=== PATIENT | female | born 1985 | race Caucasian/White ===

== ENCOUNTER 2016-11-03 11:00 | Emergency (ER) | payer OTHER ==
[~2016-11-03 11:00] MED LIST: CLIN1CAP5 PO; LORT5TAB PO; SULF1TAB47 PO; Z.0.NO CURRENT MEDS
--- NOTE | 2016-11-03 11:49 | PD ---
HPI Chief Complaint Back pain, lower abdominal pain , decreased movement Date Seen: Nov 03, 2016 Time Seen: 11:30 Travel History International Travel<30 Days: No Contact w/Intl Traveler<30Days: No Known Affected Area: No History of Present Illness HPI 31-year-old 0-1 at 36 weeks and 4 days of gestation, EDC 11/27/16, patient presented to labor and delivery with complaints of decreased movement, back pain and lower abdominal pain. Patient has a history of previous section 1. She denies contractions, leakage of fluids, vaginal bleeding. care is with [facility] [employer] [employer] in [place], care is significant for morbid obesity, history of previous section 1, history of preeclampsia in previous , and gestational diabetes. Para: 1 : 4 Miscarriage: 2 : 0 History Past Medical History Narrative Medical Significant for: History of preeclampsia at this , gestational diabetes and morbid obesity Obstetric History Obstetric History section 1, spontaneous 2 Past Surgical History Narrative Surgical delivery 1 in 2012 Family History Narrative Family History Significant for diabetes and hypertension Social History Alcohol Use: No Tobacco Use: Yes (ex-smoker) Substance Abuse: No Allergies-Medications (Allergen,Severity, Reaction): Coded Allergies: Adhesives (Verified Allergy, Mild, Rash, 07/30/15) Home Meds Active Scripts Hydrocodone-Acetaminophen (Lortab 5/500)5 Mg/500 Mg Tab1 Tab PO Q6HPRN #10 Prov:Cruzito De Oliveira MD 04/18/13 Clindamycin Hcl 150 Mg Cap2 Tab PO Q6H #80 Prov:Cruzito De Oliveira MD 04/18/13 Trimethoprim/Sulfamethoxazole (Bactrim Ds) Tab1 Tab PO BID #20 Prov:Cruzito De Oliveira MD 04/18/13 Reported Medications Miscellaneous (No Current Meds) Misc 07/22/11 Review of Systems Except as stated in HPI: all other systems reviewed are Neg Gastrointestinal: Other (lower abdominal pain) Genitourinary: Pelvic Pain, Other (back pain) Musculoskeletal: Other (back pain) Endocrine: Other (gestational diabetes, morbid obesity) Physical Exam Narrative GENERAL: Well-nourished, well-developed patient. SKIN: Warm and dry. HEAD: Normocephalic and atraumatic. EYES: No scleral icterus. No injection or drainage. ENT: No nasal drainage noted. Mucous membranes pink. Airway patent. NECK: Supple, trachea midline. No JVD. CARDIOVASCULAR: Regular rate and rhythm without murmurs, gallops, or rubs. RESPIRATORY: Breath sounds equal bilaterally. No accessory muscle use. BREASTS: Bilateral exam showed no masses , no retractions, no nipple discharge. ABDOMEN/GI: Abdomen soft, gravid, non-tender, bowel sounds present, no rebound, no guarding Gravid to 37 weeks size Fundal Height: 37 cm GENITOURINARY: External Genitalia: intact and normal in appearance BUS glands: Normal Cervix: Closed, long, posterior Dilatation: Closed Effacement: 50% Station: -3 Presentation: Cephalic Membranes: intact Uterine Contractions: None FHT's: Category: one Baseline: 140s Reactive: Yes Variability: Moderate Decels: None EXTREMITIES: No cyanosis or edema. BACK: Nontender without obvious deformity. No CVA tenderness. NEUROLOGICAL: Awake and alert. Motor and sensory grossly within normal limits. Five out of 5 muscle strength in all muscle groups. Normal speech. Data Data Vital Signs Reviewed: Yes Orders Vital Signs (Adult) .ON ADMISSION (11/03/16 11:27) ^ Labor Status (11/03/16 11:27) Urinalysis - C+S If Indicated (11/03/16 11:27) ^ Non Stress Test (11/03/16 11:27) ^ Hydration (11/03/16 11:27) Ob Bpp Wo Nst (11/03/16 11:27) [facility] Medical Record Reviewed: Yes Diagnosis Diagnosis: Primary Impression: 36 weeks gestation of Additional Impressions: Decreased movement affecting management of in third trimester Gestational diabetes mellitus (GDM) Qualified Code: O24.410 - Diet controlled gestational diabetes mellitus (GDM) in third trimester Disposition: DISCHARGE HOME Condition: Stable Patient Instructions: Abdominal Pain in (ED), Early Labor Signs (ED) , Movement (ED), General Instructions, Gestational Diabetes Diet (GEN) Additional Instructions: Patient underwent a BPP and NST, BPP is 8 out of 8, amniotic fluid index 14.2, NST is reassuring and reactive. Patient is now feeling the baby move. Will discharge patient to home. Patient instructed to return to labor and delivery if increase symptoms, cramping, contractions, leakage of fluids, vaginal bleeding and decreased movement. Drink plenty of fluids. Monitor kick counts. Keep office appointment as scheduled. Continue with already scheduled testing once weekly. Continue with fingersticks blood glucose. Departure Forms: Tests/Procedures Yovani Otoole MD Nov 03, 2016 11:49
[2016-11-03 11:57] LABS: BACTERIA, URINE RARE /hpf; BLOOD, URINE TRACE (NEG); GLUCOSE,URINE 150 mg/dL (NEG); KETONE, URINE NEG (NEG); MUCUS URINE FEW /lpf (OCC); NITRITE,URINE NEG (NEG); PH, URINE 6.5 (5.0-8.5); SQUAMOUS EPITHELIAL CELL URINE 1 /hpf (0-5); URINE COLOR YELLOW (YELLW/STRAW)
[2016-11-03 11:58] LABS: COMMENT (UR) CULTURE INDICATED; CULTURE IF INDICATED CULTURE INDICATED
[2016-11-04] MEDS ORDERED: DOCO200C (14:15)
[2016-11-04] MEDS ORDERED: ASPI81TA81 (14:15)
== END 2016-11-03 12:39 | disposition home or self-care (01) ==
LOC: HOBED 11:00
DX: O36.8130 Decreased fetal movements, third trimester, not applicable or unspecified (principal); O24.410 Gestational diabetes mellitus in pregnancy, diet controlled; O26.893 Other specified pregnancy related conditions, third trimester; R10.2 Pelvic and perineal pain; M54.9 Dorsalgia, unspecified; O99.213 Obesity complicating pregnancy, third trimester; E66.01 Morbid (severe) obesity due to excess calories; O34.219 Maternal care for unspecified type scar from previous cesarean delivery; Z87.891 Personal history of nicotine dependence; Z3A.36 36 weeks gestation of pregnancy
CPT/HCPCS: 59025; 76819; 81001; 82570; 84156; 87086

== ENCOUNTER 2016-11-10 11:05 | Emergency (ER) | payer OTHER ==
[~2016-11-10 11:05] MED LIST changes: +ASPI81TA81; -CLIN1CAP5 PO; +DOCO200C; -LORT5TAB PO; -SULF1TAB47 PO; -Z.0.NO CURRENT MEDS
[2016-11-10] MEDS ORDERED: LACTATED RINGER'S 1000 ML INJ 1,000 ML IV ONE (11:45)
[2016-11-10] MEDS ORDERED: ONDANSETRON HCL 4 MG/2 ML VIAL IV PUSH ONE (11:45)
--- NOTE | 2016-11-10 11:46 | PD ---
HPI Chief Complaint nausea, vomiting, diarrhea Date Seen: Nov 10, 2016 Time Seen: 11:35 (Yeyo Canada MD R2) Travel History International Travel<30 Days: No Contact w/Intl Traveler<30Days: No Known Affected Area: No (Yeyo Canada MD R2) History of Present Illness HPI 31 year old at 37/4 weeks gestation presents with nausea, vomiting, and diarrhea for 24 hours. She's had 5 episodes of vomiting and 8 episodes of non- bloody diarrhea. She has lower abdominal cramping but no contractions. She feels her heart racing and has lightheadedness when standing. Her mouth feels dry. She has a mild headache. No blurry vision, chest pain, shortness of breath , or calf tenderness. She has a history of diet controlled diabetes. (Yeyo Canada MD R2) History Past Medical History Narrative Medical Diabetes type II (Yeyo Canada MD R2) Obstetric History Obstetric History at 3/4 1.) delivered at 36 weeks via for failure to progress, had preeclampsia 2.) current , diet controlled diabetes, no other complications (Yeyo Canada MD R2) Past Surgical History Narrative Surgical (Yeyo Canada MD R2) Family History Narrative Family History None significant (Yeyo Canada MD) Social History Alcohol Use: No Tobacco Use: No Substance Abuse: No (Yeyo Canada MD R2) Allergies-Medications (Allergen,Severity, Reaction): Coded Allergies: Adhesives (Verified Allergy, Mild, Rash, 11/04/16) Home Meds Active Scripts Nitrofurantoin Monohydrate Macrocrystals (Macrobid)100 Mg [id number] Mg PO BID #10 CAP Ref 0 Prov:Yeyo Canada MD R2 11/10/[address] (Aspir-81)81 Mg Tabdr 11/04/16 Docosahexaenoic Acid ( Dha)Unknown Strength CapUnknown Dose 11/04/16 Discontinued Reported Medications Miscellaneous (No Current Meds) Misc 07/22/11 Discontinued Scripts Hydrocodone-Acetaminophen (Lortab 5/500)5 Mg/500 Mg Tab1 Tab PO Q6HPRN #10 Prov:Cruzito De Oliveira MD 04/18/13 Clindamycin Hcl 150 Mg Cap2 Tab PO Q6H #80 Prov:Cruzito De Oliveira MD 04/18/13 Trimethoprim/Sulfamethoxazole (Bactrim Ds) Tab1 Tab PO BID #20 Prov:Cruzito De Oliveira MD 04/18/13 Review of Systems General / Constitutional: Weight Gain, No: Fever, Weight Loss, Chills Eyes: No: Diploplia, Blurred Vision, Visual changes, Pain HENT: Headaches, Lightheadedness, No: Vertigo Cardiovascular: Tachycardia, No: Irregular Rhythm, Chest Pain or Discomfort, Palpitations, Syncope, Varicosities, Edema, Cyanosis Respiratory: No: Cough, Short of Breath, Wheezing Gastrointestinal: Nausea, Vomiting, Diarrhea, Loss of Appetite, No: Abdominal Pain Genitourinary: No: Urgency, Frequency, Dysuria Musculoskeletal: Cramping, No: Weakness, Edema Skin: No Rash Neurologic: Headache, No: Weakness, Dizziness, Syncope, Focal Abnormalities, Coordination Problem, Slurred Speech, Seizures Psychiatric: No: Anxiety, Depression Endocrine: No: Heat Intolerance, Cold Intolerance (Yeyo Canada MD R2) Gastrointestinal: No: Nausea (resolved), Vomiting (resolved), Diarrhea (stable) , Abdominal Pain Genitourinary: No: Urgency, Frequency, Discharge, Vaginal Bleeding (Madisyn Fernandes MD) Physical Exam Narrative GENERAL: Well-nourished, well-developed patient. SKIN: Good skin turgor HEAD: Normocephalic and atraumatic. EYES: No scleral icterus. No injection or drainage. ENT: Dry lips and oral mucosa NECK: Supple, trachea midline. No JVD. CARDIOVASCULAR: Regular rate and rhythm without murmurs, gallops, or rubs. Normal capillary refill. RESPIRATORY: Breath sounds equal bilaterally. No accessory muscle use. ABDOMEN/GI: Abdomen soft, non-tender, bowel sounds present, no rebound, no guarding Gravid to 37 weeks size GENITOURINARY: External Genitalia: intact and normal in appearance Dilatation: [-] Effacement: [-] Station: [-] Presentation: [-] Membranes: [intact or ruptured] Uterine Contractions: 0 FHT's: Category: 1 Baseline: 160's Reactive: yes Variability: moderate Decels: none EXTREMITIES: No cyanosis or edema. BACK: Nontender without obvious deformity. No CVA tenderness. NEUROLOGICAL: Awake and alert. Motor and sensory grossly within normal limits. Five out of 5 muscle strength in all muscle groups. Normal speech. (Yeyo Canada MD R2) Narrative Initially mild tachycardia 165-170, moderate variability, no decelerations After IV hydration FHR baseline 155, moderate variability, +accelerations to 170s TOCO: No uc (Madisyn Fernandes MD) Data Data Vital Signs Reviewed: Yes Orders Vital Signs (Adult) .ON ADMISSION (11/10/16 11:30) ^ Labor Status (11/10/16 11:30) ^ Non Stress Test (11/10/16 11:30) Vital Signs (Adult) .ON ADMISSION (11/10/16 11:37) ^ Labor Status (11/10/16 11:37) Urinalysis - C+S If Indicated (11/10/16 11:37) Cbc No Diff, Includes Plts (11/10/16 11:37) Comprehensive Metabolic Panel (11/10/16 11:37) Lipase (11/10/16 11:37) ^ Heart TI.QSHIFT (11/10/16 11:37) (Yeyo Canada MD R2) Vital Signs Reviewed: Yes Labs Laboratory Tests Test 11/10/16 11/10/16 11:10 11:50 Urine Color DARK-YELLOW (YELLW/STRAW) Urine Turbidity HAZY (CLEAR) Urine pH 6.0 (5.0-8.5) Urine Specific [place] 1.034 (1.002-1.035) Urine Protein GREATER THAN 600 mg/dL (NEG-TRACE) Urine Glucose (UA) TRACE mg/dL (NEG) Urine Ketones 150 mg/dL (NEG) Urine Occult Blood TRACE (NEG) Urine Nitrite NEG (NEG) Urine Bilirubin NEG (NEG) Urine Urobilinogen 2.0 MG/DL (LESS THAN 2.0) Urine Leukocyte Esterase TRACE (NEG) Urine RBC 3 /hpf (0-3) Urine WBC 19 /hpf (0-5) Urine Squamous Epithelial 11 /hpf (0-5) Cells Urine Bacteria MOD /hpf (NONE) Urine Hyaline Casts 22 /lpf (RARE) Urine Mucus MANY /lpf (OCC) Microscopic Urinalysis Comment CULTURE INDICATED White Blood Count 9.2 TH/MM3 (4.0-11.0) Red Blood Count 4.88 MIL/MM3 (4.00-5.30) Hemoglobin 14.3 GM/DL (11.6-15.3) Hematocrit 42.3 % (35.0-46.0) Mean Corpuscular Volume 86.6 FL (80.0-100.0) Mean Corpuscular Hemoglobin 29.2 PG (27.0-34.0) Mean Corpuscular Hemoglobin 33.7 % Concent (32.0-36.0) Red Cell Distribution Width 14.9 % (11.6-17.2) Platelet Count 228 TH/MM3 (150-450) Mean Platelet Volume 10.7 FL (7.0-11.0) Sodium Level 134 MEQ/L (136-145) Potassium Level 4.1 MEQ/L (3.5-5.1) Chloride Level 100 MEQ/L (98-107) Carbon Dioxide Level 20.6 MEQ/L (21.0-32.0) Anion Gap 13 MEQ/L (5-15) Blood Urea Nitrogen 10 MG/DL (7-18) Creatinine 0.66 MG/DL (0.50-1.00) Estimat Glomerular Filtration 103 ML/MIN Rate (>89) Random Glucose 153 MG/DL (74-106) Calcium Level 8.6 MG/DL (8.5-10.1) Total Bilirubin 0.4 MG/DL (0.2-1.0) Aspartate Amino Transf 10 U/L (15-37) (AST/SGOT) Alanine Aminotransferase 13 U/L (10-53) (ALT/SGPT) Alkaline Phosphatase 79 U/L (45-117) Total Protein 7.3 GM/DL (6.4-8.2) Albumin 2.2 GM/DL (3.4-5.0) Lipase 70 U/L (73-393) Vital Signs Date Time Temp Pulse Resp B/P Pulse Ox O2 Delivery O2 Flow Rate FiO2 11/10/16 11:50 119 (Madisyn Fernandes MD) [facility] Medical Record Reviewed: Yes Interpretation(s) 31 year old at 37/4 weeks gestation presents with vomiting, diarrhea, dehydration. Mom and baby with mild tachycardia, mom with dry mouth, lightheadedness on standing, mild dehydration. - CBC, CMP, lipase - Urinalysis, check for ketones - monitoring - 1L bolus of LR - Zofran for nausea/vomiting - BPP was already scheduled, will go ahead and get. Narrative Course / MDM 31 year old at 37/4 weeks gestation presents with vomiting, diarrhea, dehydration, likely gastroenteritis. - strip reassuring, tachycardia resolving. - BPP normal. - Urinalysis suggesting bacteriuria, treat empirically with macrobid. - CBC, CMP, lipase reviewed - Encourage good hydration - Close follow up with OB - Schedule for repeat . (Yeyo Canada MD R2) Attending Attestation 37 weeks, care with [facility] 1. Gastroenteritis with 24 hour of N/V/Diarrhea and Dehydration with Large Ketones -symptoms have resolved with IV hydration -tolerated regular (diabetic) lunch -reviewed bland diet for next 24-48 hours -has f/u OB appointment Wed - 48 hours 2. Pregestational DM with Morbid obesity -previously on Metformin -currently no medications, diet controlled -Glucose 154 -has had weekly NSTs, now recommending twice weekly NST with BPP/ASHOK per [facility] -BPP today 05/26 -return to Diagnostics on 3. Polyhydramnios increased on todays ASHOK 28cm -Twice weekly NST/ASHOK, return 4. Prior -Repeat @ 39 weeks unless otherwise indicated per [facility] -Scheduled for Nov 20, 2016 @ 10:[address] Muñoz and Dr. Nayak -Patient understands risk of surgery which include, but not limited to infection , bleeding, need for transfusion, injury to surrounding organs, adhesions/ scarring -counseled 5. Patient desires BTL at time of -She and her partner do not desire future fertility -She states she has signed "tubal papers" awhile ago -discussed salpingectomy for sterilization 6. UA suggestive of UTI -Macrobid RX given -F/u on urine culture at f/u visit (Madisyn Fernandes MD) Diagnosis Diagnosis: Primary Impression: Gastroenteritis Additional Impressions: Urinary tract infection affecting care of mother in third trimester, antepartum Gastrointestinal symptoms during in third trimester, antepartum 37 weeks gestation of Disposition: DISCHARGE HOME Condition: Good Scripts Nitrofurantoin Monohydrate Macrocrystals (Macrobid)100 Mg [id number] Mg PO BID #10 CAP Ref 0 Prov:Yeyo Canada MD R2 11/10/16 Yeyo Canada MD R2 Nov 10, 2016 11:46 Madisyn Fernandes MD Nov 10, 2016 15:41
[2016-11-10 11:50] VITALS: PULSE 119
[2016-11-10 12:13] LABS: HEMATOCRIT 42.3 % (35.0-46.0); MEAN CELL VOLUME 86.6 FL (80.0-100.0); MEAN CORPUSCULAR HEMOGLOBIN 29.2 PG (27.0-34.0); MEAN CORPUSCULAR HGB CONC 33.7 % (32.0-36.0); PLATELET COUNT 228 TH/MM3 (150-450); RED BLOOD COUNT 4.88 MIL/MM3 (4.00-5.30); RED CELL DISTRIBUTION WIDTH 14.9 % (11.6-17.2); REVIEW FLAG FINAL; WHITE BLOOD COUNT 9.2 TH/MM3 (4.0-11.0)
[2016-11-10 12:26] LABS: BACTERIA, URINE MOD /hpf; BLOOD, URINE TRACE (NEG); GLUCOSE,URINE TRACE mg/dL (NEG); HYALINE CAST, URINE 22 /lpf (RARE); KETONE, URINE 150 mg/dL (NEG); MUCUS URINE MANY /lpf (OCC); NITRITE,URINE NEG (NEG); SQUAMOUS EPITHELIAL CELL URINE 11 /hpf (0-5); URINE COLOR DARK-YELLOW (YELLW/STRAW)
[2016-11-10 12:29] LABS: ALT (GPT) 13 U/L (10-53); ANION GAP 13 MEQ/L (5-15); AST (GOT) 10 U/L (15-37); BICARBONATE 20.6 MEQ/L (21.0-32.0); BLOOD UREA NITROGEN 10 MG/DL (7-18); CHLORIDE 100 MEQ/L (98-107); GLOMERULAR FILTRATION RATE 103 ML/MIN (>89); POTASSIUM 4.1 MEQ/L (3.5-5.1); SODIUM (NA) 134 MEQ/L (136-145)
[2016-11-10 12:31] LABS: COMMENT (UR) CULTURE INDICATED; CULTURE IF INDICATED CULTURE INDICATED
[2016-11-10 12:32] LABS: ALKALINE PHOSPHATASE 79 U/L (45-117); TOTAL BILIRUBIN ADULT 0.4 MG/DL (0.2-1.0)
[2016-11-10] MEDS ORDERED: LACTATED RINGER'S 1000 ML INJ 1,000 ML IV SCH (14:00)
[2016-11-10] MEDS ORDERED: MACR100C2 PO (15:27)
== END 2016-11-10 15:37 | disposition home or self-care (01) ==
LOC: HOBED 11:05
DX: O99.613 Diseases of the digestive system complicating pregnancy, third trimester (principal); O24.113 Pre-existing type 2 diabetes mellitus, in pregnancy, third trimester; O99.283 Endocrine, nutritional and metabolic diseases complicating pregnancy, third trimester; O99.213 Obesity complicating pregnancy, third trimester; E11.9 Type 2 diabetes mellitus without complications; Z3A.37 37 weeks gestation of pregnancy
CPT/HCPCS: 76819; 80053; 81001; 83690; 85027; 87086; 96361; 96374; 99284; J2405; J7120

== ENCOUNTER 2016-11-13 13:42 | Inpatient (IN) | payer OTHER ==
[~2016-11-13 13:42] MED LIST changes: +MACR100C2 PO
[2016-11-13 14:31] VITALS: BP 155/101; PULSE 97
[2016-11-13] MEDS ORDERED: LACTATED RINGER'S 1000 ML INJ 1,000 ML IV ONE ×2 (14:39→21:00)
--- NOTE | 2016-11-13 14:39 | HHI.HP ---
HPI Chief Complaint This patient was presenting for OB consultation for a cc repeat and was then OB diagnostics no definite hypertension there and some tachycardia and brought over to OB ED Date Seen: Nov 13, 2016 Travel History International Travel<30 Days: No Contact w/Intl Traveler<30Days: No Known Affected Area: No History of Present Illness HPI The patient is a 31-year-old white female previous 1 now 38 weeks gestation who [facility], she was presenting today for OB diagnostics biophysical and when seen there blood pressures were elevated the baby was somewhat tachycardic and they feel she needed to be seen in the OB ED which they brought her over here, she was also supposed of OB consultation for repeat today as well. The patient states baby is moving her heart rate tracing is reactive and the heart rate is within normal limits on its rate, she has no contractions and her membranes are intact. Blood pressures here 146/97 150/85 and 148/92 those to lasting pressures her back in OB diagnostics. Para: 1 : 4 : 2 History Past Medical History Narrative Medical Patient has gestational diabetes diet controlled her blood sugars within normal limits at home fingersticks. The patient also has history of hypertension in previous Obstetric History Obstetric History Previous Family History Family History: Negative Social History Alcohol Use: No Tobacco Use: No Substance Abuse: No Allergies-Medications (Allergen,Severity, Reaction): Coded Allergies: Adhesives (Verified Allergy, Mild, Rash, 11/12/16) Home Meds Active Scripts Nitrofurantoin Monohydrate Macrocrystals (Macrobid)100 Mg [id number] Mg PO BID #10 CAP Ref 0 Prov:Yeyo Canada MD R2 11/10/16 Reported Medications Aspirin (Aspir-81)81 Mg Tabdr 11/04/16 Docosahexaenoic Acid ( Dha)Unknown Strength CapUnknown Dose 11/04/16 Review of Systems General / Constitutional: No: Fever, Weight Gain, Chills, Other Eyes: No: Diploplia, Blurred Vision, Visual changes, Pain, Photophobia HENT: No: Headaches, Vertigo, Lightheadedness Cardiovascular: No: Irregular Rhythm, Chest Pain or Discomfort, Palpitations, Tachycardia, Syncope, Varicosities, Edema, Cyanosis Respiratory: No: Cough, Short of Breath, Other Gastrointestinal: No: Nausea, Vomiting, Diarrhea Genitourinary: No: Decreased Urinary Output, Oliguria Musculoskeletal: No: Limited ROM, Weakness, Cramping, Edema, Pain Skin: No Rash, No Itching, No Dryness, No Lumps, No Change in Pigmentation, No Change in Nails, No Alopecia, No Lesions Neurologic: No: Weakness, Dizziness, Syncope, Focal Abnormalities, Coordination Problem, Headache, Slurred Speech, Seizures Psychiatric: No: Depression, Suicidal Ideations, Homicidal Ideation Endocrine: No: Heat Intolerance, Cold Intolerance, Polydipsia, Polyuria, Other Physical Exam Narrative GENERAL: Well-nourished, obese patient. SKIN: Warm and dry. HEAD: Normocephalic and atraumatic. EYES: No scleral icterus. No injection or drainage. ENT: No nasal drainage noted. Mucous membranes pink. Airway patent. NECK: Supple, trachea midline. No JVD. CARDIOVASCULAR: Regular rate and rhythm without murmurs, gallops, or rubs. RESPIRATORY: Breath sounds equal bilaterally. No accessory muscle use. BREASTS: Bilateral exam showed no masses , no retractions, no nipple discharge. ABDOMEN/GI: Abdomen soft, non-tender,obese, bowel sounds present, no rebound, no guarding Gravid to [-40] weeks size Fundal Height: [40-] GENITOURINARY: External Genitalia: intact and normal in appearance BUS glands: [-] Cervix: [Closed-] Dilatation: [0-] Effacement: [0-] Station: [-3] Presentation: [vtx-] Membranes: [intact ] Uterine Contractions: [none-] FHT's: Category: [1-] Baseline: [-144] Reactive: [-yes] Variability: [mod-] Decels: [none-] EXTREMITIES: No cyanosis , 2 + pitting pretibial edema. BACK: Nontender without obvious deformity. No CVA tenderness. NEUROLOGICAL: Awake and alert. Motor and sensory grossly within normal limits. Five out of 5 muscle strength in all muscle groups. Normal speech. Data Data Labs Ultrasound done today shows a biophysical profile 8 of 8 and combine with a reactive NST makes a 10 of 10 biophysical ASHOK as a 23.0 which is down from 28 last week but still positive for polyhydramnios weight is a 9 lbs. 2 oz. on ultrasound was greater than 90th percentile and a macrosomic baby Assessment/Plan Assessment and Plan Patient is a 31-year-old white female previous at 38 weeks' gestation with developing preeclampsia. Pressures are borderline in the 140- 150 over 80 and 90s range, she has a urine protein showing a 24-hour urine spit up spell of 1346 mg in 24 hours, she has developed 2+ pitting edema in her legs and has gained 4 pounds in the last week with the above findings fluid recommend delivery by section at this time. She's had tubal papers signed over a month ago and will find those of the week entire tubes times surgery. The patient ate her last food at about 10 AM today so will wait 6 PM to do her surgery Madan Nayak II, MD Nov 13, 2016 14:38
[2016-11-13 15:10] LABS: BACTERIA, URINE OCC /hpf; BLOOD, URINE NEG (NEG); COMMENT (UR) CULT NOT INDICATED; CULTURE IF INDICATED CULT NOT INDICATED; GLUCOSE,URINE NEG (NEG); KETONE, URINE NEG (NEG); MUCUS URINE FEW /lpf (OCC); NITRITE,URINE NEG (NEG); PH, URINE 6.5 (5.0-8.5); SQUAMOUS EPITHELIAL CELL URINE 6 /hpf (0-5); URINE COLOR YELLOW (YELLW/STRAW)
[2016-11-13] MEDS ORDERED: ceFAZolin 2 GM PREMIX 50 ML IV SCH (15:45)
[2016-11-13] MEDS: LACTATED RINGER'S 1000 ML INJ 1,000 ML IV SCH (16:00)
[2016-11-13] MEDS ORDERED: CITRIC ACID-SODIUM CITRATE LIQ 30 ML UDC PO SCH (16:15)
[2016-11-13 16:31] LABS: AUTOMATED NEUTROPHIL # 7.1 TH/MM3 (1.8-7.7); BASOPHIL % 0.3 % (0.0-2.0); EOSINOPHIL % 0.4 % (0.0-4.0); HEMATOCRIT 39.4 % (35.0-46.0); HEMO FLAGS DIFF FINAL; LYMPH % 16.2 % (9.0-44.0); LYMPHOCYTE # 1.5 TH/MM3 (1.0-4.8); MEAN CELL VOLUME 86.4 FL (80.0-100.0); MEAN CORPUSCULAR HEMOGLOBIN 29.4 PG (27.0-34.0); MEAN CORPUSCULAR HGB CONC 34.1 % (32.0-36.0); MONO % 8.3 % (0.0-8.0); NEUT % 74.8 % (16.0-70.0); PLATELET COUNT 198 TH/MM3 (150-450); RED BLOOD COUNT 4.56 MIL/MM3 (4.00-5.30); RED CELL DISTRIBUTION WIDTH 15.1 % (11.6-17.2); WHITE BLOOD COUNT 9.5 TH/MM3 (4.0-11.0)
[2016-11-13 16:50] LABS: ALKALINE PHOSPHATASE 67 U/L (45-117); ALT (GPT) 11 U/L (10-53); ANION GAP 11 MEQ/L (5-15); AST (GOT) 9 U/L (15-37); BLOOD UREA NITROGEN 14 MG/DL (7-18); CHLORIDE 104 MEQ/L (98-107); GLOMERULAR FILTRATION RATE 165 ML/MIN (>89); POTASSIUM 3.9 MEQ/L (3.5-5.1); SODIUM (NA) 138 MEQ/L (136-145); TOTAL BILIRUBIN ADULT 0.2 MG/DL (0.2-1.0)
[2016-11-13] MEDS ORDERED: MORPHINE SULFATE PF 5 MG/10 ML VIAL ONE (19:12)
[2016-11-13] MEDS ORDERED: ACETAMINOPHEN 1000 MG/100 ML VIAL IV ONE (19:12)
[2016-11-13] MEDS ORDERED: ONDANSETRON HCL 4 MG/2 ML VIAL ONE (19:12)
[2016-11-13] MEDS ORDERED: OXYTOCIN 10 UNIT/ML AMP ONE (19:13)
[2016-11-13] MEDS ORDERED: DEXTROSE (INFANT/PEDS) GEL 2.5 ML/GM (40%) TUBE ONE (20:19)
[2016-11-13] MEDS ORDERED: fentaNYL CITRATE 250 MCG/5 ML AMP ONE (20:57)
[2016-11-13] MEDS ORDERED: ACETAMINOPHEN 325 MG TAB PO PRN (21:00)
[2016-11-13] MEDS ORDERED: ONDANSETRON HCL 4 MG/2 ML VIAL IV PUSH PRN (21:00)
[2016-11-13] MEDS ORDERED: PHENYLEPHRINE HCL 10 MG/ML VIAL IV ONE (21:00)
[2016-11-13] MEDS ORDERED: OXYTOCIN 30 UNITS-500ML PREMIX 500 ML IV ONE (21:00)
[2016-11-13] MEDS ORDERED: ZOLPIDEM TARTRATE 5 MG TAB PO PRN (21:00)
[2016-11-13] MEDS: SODIUM CHLORIDE 0.9% FLUSH 5 ML FLUSH IV SCH (21:00)
[2016-11-13] MEDS ORDERED: SIMETHICONE 80 MG CHEWABLE TAB PO PRN (21:00)
[2016-11-13] MEDS ORDERED: KETOROLAC TROMETHAMINE 60 MG/2 ML (IM) VIAL IM PRN (21:00)
[2016-11-13] MEDS ORDERED: SODIUM CHLORIDE 0.9% FLUSH 5 ML FLUSH IV PRN (21:00)
[2016-11-13] MEDS ORDERED: oxyCODONE/ACETAMINOPHEN 5 MG/325 MG TAB PO PRN (21:00)
[2016-11-13] MEDS ORDERED: OXYTOCIN 30 UNITS-500ML PREMIX 500 ML ONE (22:09)
[2016-11-14 01:31] LABS: AMPHETAMINE, URINE NEG (NEG); BARBITURATES, URINE NEG (NEG); COCAINE, URINE NEG (NEG)
[2016-11-14] MEDS ORDERED: LACTATED RINGER'S 1000 ML INJ 1,000 ML IV SCH (01:55)
[2016-11-14] MEDS: NYSTATIN 100,000 U/GM PWD 15 GM BTL TOPICAL SCH ×2 (05:43→13:46)
[2016-11-14 06:19] LABS: ANION GAP 7 MEQ/L (5-15); AST (GOT) 9 U/L (15-37); BICARBONATE 25.9 MEQ/L (21.0-32.0); BLOOD UREA NITROGEN 14 MG/DL (7-18); CHLORIDE 104 MEQ/L (98-107); GLOMERULAR FILTRATION RATE 89 ML/MIN (>89); SODIUM (NA) 137 MEQ/L (136-145)
[2016-11-14 06:21] LABS: ALKALINE PHOSPHATASE 50 U/L (45-117); ALT (GPT) 9 U/L (10-53); TOTAL BILIRUBIN ADULT 0.1 MG/DL (0.2-1.0)
[2016-11-14] MEDS ORDERED: OXYTOCIN 30 UNITS-500ML PREMIX 500 ML IV PRN (07:00)
--- NOTE | 2016-11-14 08:10 | HHI.OB ---
Subjective Remarks 31 year old post-op day 1 after . She is followed by [facility]. She has a history of pre-eclampsia. Blood pressure this morning is 150/ 90. She had tubal ligation during the procedure. Objective Vitals/I&O Vital Signs Date Time Temp Pulse Resp B/P Pulse Ox O2 Delivery O2 Flow Rate FiO2 11/13/16 14:31 97 155/101 Result Diagram: 11/13/16 1530 11/14/16 0535 Objective Remarks GENERAL: Well-nourished, well-developed patient. CARDIOVASCULAR: Regular rate and rhythm without murmurs, gallops, or rubs. RESPIRATORY: Breath sounds equal bilaterally. No accessory muscle use. ABDOMEN/GI: Abdomen soft, non-tender, bowel sounds present. Incision: Clean, dry and intact. Fundus: Firm, non-tender at umbilicus. GENITOURINARY: Light to moderate bleeding. EXTREMITIES: No cyanosis or edema, non-tender, without signs of DVT. Medications and IVs Current Medications Medications (Trade) Dose Ordered Sig/Allen Route Start Time Stop Time Status Last Admin Lactated Ringer's 1,000 ml @ 150 mls/hr Q6H40M IV 11/13/16 16:00 11/13/16 16:00 (Lr 1000 ml Inj) 1,000 ml @ 100 mls/hr Q10H IV 11/14/16 01:55 11/14/16 21:54 11/14/16 04:00 (NS Flush) 2 ml BID IV 11/13/16 21:00 (NS Flush) 2 ml UNSCH PRN IV 11/13/16 21:00 (Mylicon Chew) 80 mg QID PRN PO 11/13/16 21:00 (Tylenol) 650 mg Q6H PRN PO 11/13/16 21:00 (Motrin) 600 mg Q6H PRN PO 11/13/16 21:00 (Percocet 5-325 Mg) 1 tab Q4H PRN PO 11/13/16 21:00 Oxycodone/ Acetaminophen 2 tab 2 tab Q4H PRN PO 11/13/16 21:00 (Ancef Inj/NS Inj) 100 ml @ 200 mls/hr Q8H IV 11/14/16 02:00 11/14/16 10:29 11/14/16 02:00 (Maureen-Colace) 2 tab Q12H PRN PO 11/13/16 21:00 (Ambien) 5 mg HS PRN PO 11/13/16 21:00 (M-M-R Ii Inj) 0.5 ml ONCE ONCE SQ 11/14/16 16:00 11/14/16 16:01 (Boostrix Inj) 0.5 ml ONCE ONCE IM 11/14/16 16:00 11/14/16 16:01 (Zofran Inj) 4 mg Q6H PRN IV PUSH 11/13/16 21:00 (Mycostatin Powder) 1 applic Q8HR TOPICAL 11/14/16 06:00 11/14/16 05:43 (Flu (Quadrivalent) Vaccine Inj) 0.5 ml ONCE ONCE IM 11/15/16 10:00 11/15/16 10:01 Assessment/Plan Assessment and Plan 31 year old post-op day 1 after , also with pre-eclampsia. - Close monitoring with pre-eclampsia. Will need follow up with OB within 2 to 3 days of leaving the hospital. - Encourage ambulation. - Monitor lochia and incision site. Had vertical incision through abdominal wall and uterus. - History of diabetes. Blood glucose this morning is 136. - Percocet and ibuprofen for pain control. - Positive for THC, risk of neurocognitive dysfunction with if she continues to use. Yeyo Canada MD R2 Nov 14, 2016 08:10
[2016-11-14] MEDS ORDERED: LABETALOL HCL 100 MG TAB PO SCH (09:00)
--- NOTE | 2016-11-14 09:09 | HHI.OB ---
Subjective Post Operative Day: 1 Remarks doing well ambulating , kenroy diet , BP 150/90 bandage dry , seen with [facility] Med resident agree with eval and plan Objective Vitals/I&O Vital Signs Date Time Temp Pulse Resp B/P Pulse Ox O2 Delivery O2 Flow Rate FiO2 11/13/16 14:31 97 155/101 Result Diagram: 11/13/16 1530 11/14/16 0535 Objective Remarks GENERAL: Well-nourished, well-developed patient. CARDIOVASCULAR: Regular rate and rhythm without murmurs, gallops, or rubs. RESPIRATORY: Breath sounds equal bilaterally. No accessory muscle use. ABDOMEN/GI: Abdomen soft, non-tender, bowel sounds present. Incision: Clean, dry and intact. Fundus: Firm, non-tender at umbilicus. GENITOURINARY: Light to moderate bleeding. EXTREMITIES: No cyanosis or edema, non-tender, without signs of DVT. Medications and IVs Current Medications Medications (Trade) Dose Ordered Sig/Allen Route Start Time Stop Time Status Last Admin Lactated Ringer's 1,000 ml @ 150 mls/hr Q6H40M IV 11/13/16 16:00 11/13/16 16:00 (Lr 1000 ml Inj) 1,000 ml @ 100 mls/hr Q10H IV 11/14/16 01:55 11/14/16 21:54 11/14/16 04:00 (NS Flush) 2 ml BID IV 11/13/16 21:00 (NS Flush) 2 ml UNSCH PRN IV 11/13/16 21:00 (Mylicon Chew) 80 mg QID PRN PO 11/13/16 21:00 (Tylenol) 650 mg Q6H PRN PO 11/13/16 21:00 (Motrin) 600 mg Q6H PRN PO 11/13/16 21:00 (Percocet 5-325 Mg) 1 tab Q4H PRN PO 11/13/16 21:00 Oxycodone/ Acetaminophen 2 tab 2 tab Q4H PRN PO 11/13/16 21:00 (Ancef Inj/NS Inj) 100 ml @ 200 mls/hr Q8H IV 11/14/16 02:00 11/14/16 10:29 11/14/16 02:00 (Maureen-Colace) 2 tab Q12H PRN PO 11/13/16 21:00 (Ambien) 5 mg HS PRN PO 11/13/16 21:00 (M-M-R Ii Inj) 0.5 ml ONCE ONCE SQ 11/14/16 16:00 11/14/16 16:01 (Boostrix Inj) 0.5 ml ONCE ONCE IM 11/14/16 16:00 11/14/16 16:01 (Zofran Inj) 4 mg Q6H PRN IV PUSH 11/13/16 21:00 (Mycostatin Powder) 1 applic Q8HR TOPICAL 11/14/16 06:00 11/14/16 05:43 (Flu (Quadrivalent) Vaccine Inj) 0.5 ml ONCE ONCE IM 11/15/16 10:00 11/15/16 10:01 Assessment/Plan Assessment and Plan 31 year old post-op day 1 after , also with pre-eclampsia. - Close monitoring with pre-eclampsia. Will need follow up with OB within 2 to 3 days of leaving the hospital. - Encourage ambulation. - Monitor lochia and incision site. Had vertical incision through abdominal wall and uterus. - History of diabetes. Blood glucose this morning is 136. - Percocet and ibuprofen for pain control. - Positive for THC, risk of neurocognitive dysfunction with if she continues to use. Madan Nayak II, MD Nov 14, 2016 09:09
[2016-11-14 11:59] LABS: HEMATOCRIT 35.6 % (35.0-46.0); MEAN CELL VOLUME 87.7 FL (80.0-100.0); MEAN CORPUSCULAR HGB CONC 33.1 % (32.0-36.0); PLATELET COUNT 173 TH/MM3 (150-450); RED BLOOD COUNT 4.06 MIL/MM3 (4.00-5.30); RED CELL DISTRIBUTION WIDTH 15.2 % (11.6-17.2); REVIEW FLAG FINAL; WHITE BLOOD COUNT 9.1 TH/MM3 (4.0-11.0)
[2016-11-14] MEDS: DOCUSATE SODIUM 50 MG/SENNA 8.6 MG TAB PO PRN (12:35)
[2016-11-14] MEDS: IBUPROFEN 600 MG TAB PO PRN ×2 (12:35→18:42)
[2016-11-14] MEDS: oxyCODONE/ACETAMINOPHEN 5 MG/325 MG TAB PO PRN ×2 (12:36→18:43)
[2016-11-14 13:22] VITALS: BP 151/79; PULSE 98; RESP 18
[2016-11-14 13:23] VITALS: TEMP 98.7; O2SAT 98
[2016-11-14 16:00] VITALS: BP 142/78; PULSE 82; RESP 18
[2016-11-14] MEDS ORDERED: MEASLES, MUMPS, RUBELLA VACCINE 0.5 ML VIAL SQ ONE (16:00)
[2016-11-14] MEDS ORDERED: DIPHTH/TETANUS/ACEL PERTUSSIS (BOOSTER) 0.5 ML VIAL/PFS IM ONE (16:00)
[2016-11-14] MEDS: LACTATED RINGER'S 1000 ML INJ 1,000 ML IV SCH (18:40)
[2016-11-14] MEDS: SODIUM CHLORIDE 0.9% FLUSH 5 ML FLUSH IV SCH (21:00)
[2016-11-15] MEDS: DOCUSATE SODIUM 50 MG/SENNA 8.6 MG TAB PO PRN ×2 (00:18→12:11)
[2016-11-15] MEDS: IBUPROFEN 600 MG TAB PO PRN ×3 (00:18→12:11)
[2016-11-15] MEDS: NYSTATIN 100,000 U/GM PWD 15 GM BTL TOPICAL SCH ×3 (00:18→14:00)
[2016-11-15] MEDS: LACTATED RINGER'S 1000 ML INJ 1,000 ML IV SCH ×2 (00:20→14:40)
[2016-11-15] MEDS: oxyCODONE/ACETAMINOPHEN 5 MG/325 MG TAB PO PRN ×2 (06:02→12:11)
[2016-11-15 07:38] VITALS: PULSE 86; RESP 18; TEMP 98
--- NOTE | 2016-11-15 07:50 | HHI.OB ---
Subjective Remarks 31 year old post-op day 2 after . She is followed by [facility]. She has a history of pre-eclampsia. Blood pressure this morning is 156/ 84. No complaint of headache or blurry vision this morning. No new onset of edema. She plans for tubal ligation with her OB doctor. She is ambulating. Pain is well controlled. No reports of incision site drainage or redness. (Yeyo Canada MD R2) Objective Vitals/I&O Vital Signs Date Time Temp Pulse Resp B/P Pulse Ox O2 Delivery O2 Flow Rate FiO2 11/15/16 07:38 98.0 86 18 11/14/16 16:00 18 11/14/16 16:00 82 142/78 11/14/16 14:16 16 11/14/16 14:15 16 11/14/16 13:23 98.7 98 11/14/16 13:22 98 18 151/79 (Yeyo Canada MD R2) Result Diagram: 11/14/16 1039 11/14/16 0535 Objective Remarks GENERAL: Well-nourished, well-developed patient. CARDIOVASCULAR: Regular rate and rhythm without murmurs, gallops, or rubs. RESPIRATORY: Breath sounds equal bilaterally. No accessory muscle use. ABDOMEN/GI: Abdomen soft, non-tender, bowel sounds present. Incision: Clean, dry and intact. Vertical incision. Fundus: Firm, non-tender at umbilicus. GENITOURINARY: Light to moderate bleeding. EXTREMITIES: No cyanosis or edema, non-tender, without signs of DVT. Medications and IVs Current Medications Medications (Trade) Dose Ordered Sig/Allen Route Start Time Stop Time Status Last Admin (Lr 1000 ml Inj) 1,000 ml @ 150 mls/hr Q6H40M IV 11/13/16 16:00 11/13/16 16:00 (NS Flush) 2 ml BID IV 11/13/16 21:00 (NS Flush) 2 ml UNSCH PRN IV 11/13/16 21:00 (Mylicon Chew) 80 mg QID PRN PO 11/13/16 21:00 (Tylenol) 650 mg Q6H PRN PO 11/13/16 21:00 (Motrin) 600 mg Q6H PRN PO 11/13/16 21:00 11/15/16 06:02 (Percocet 5-325 Mg) 1 tab Q4H PRN PO 11/13/16 21:00 11/15/16 06:02 (Percocet 5-325 Mg) 2 tab Q4H PRN PO 11/13/16 21:00 11/15/16 00:18 (Maureen-Colace) 2 tab Q12H PRN PO 11/13/16 21:00 11/15/16 00:18 (Ambien) 5 mg HS PRN PO 11/13/16 21:00 (Zofran Inj) 4 mg Q6H PRN IV PUSH 11/13/16 21:00 (Mycostatin Powder) 1 applic Q8HR TOPICAL 11/14/16 06:00 11/15/16 06:02 (Flu (Quadrivalent) Vaccine Inj) 0.5 ml ONCE ONCE IM 11/15/16 10:00 11/15/16 10:01 11/14/16 10:13 (Yeyo Canada MD R2) Assessment/Plan Assessment and Plan 31 year old post-op day 2 after , also with pre-eclampsia and gestational diabetes diet controlled. - Close monitoring with pre-eclampsia. Will need follow up with OB within 2 to 3 days of leaving the hospital. - Encourage ambulation. - Monitor lochia and incision site. Had vertical incision through abdominal wall and uterus. - Percocet and ibuprofen for pain control. - Positive for THC, risk of neurocognitive dysfunction with if she continues to use. She reports no use recently and plans to stop. (Yeyo Canada MD R2) Attending Attestation Patient seen and examined with the resident under direct supervision, I agree with the assessment and plan. (Yovani Otoole MD) Yeyo Canada MD R2 Nov 15, 2016 07:50 Yovani Otoole MD Nov 15, 2016 09:51
[2016-11-15] MEDS ORDERED: INFLUENZA VIRUS VACCINE (QUADRIVALENT) 0.5 ML SYR IM ONE (10:00)
[2016-11-15 14:42] VITALS: RESP 18
[2016-11-15] MEDS ORDERED: FERR65TA PO (17:05)
[2016-11-15] MEDS ORDERED: NYST10007 TOPICAL (17:05)
[2016-11-15] MEDS ORDERED: OXYC1TAB63 PO (17:05)
[2016-11-15] MEDS ORDERED: IBUP-232 PO (17:05)
--- NOTE | 2016-11-16 07:47 | HHI.DS ---
Admission Date Nov 13, 2016 at 14:35 Discharge Date: Nov 15, 2016 Admitting Diagnosis preeclampsia Diagnosis: Delivery Date: Nov 13, 2016 : Repeat Infant: Female Brief History The patient is a 31-year-old white female previous 1 now 38 weeks gestation who is [facility], she was presenting today for OB diagnostics biophysical and when seen there blood pressures were elevated the baby was somewhat tachycardic and they feel she needed to be seen in the OB ED which they brought her over here, she was also supposed of OB consultation for repeat today as well. The patient states baby is moving her heart rate tracing is reactive and the heart rate is within normal limits on its rate, she has no contractions and her membranes are intact. Blood pressures here 146/97 150/85 and 148/92 those to lasting pressures her back in OB diagnostics. Pt Condition on Discharge: Good Discharge Disposition: Discharge Home Discharge Instructions Diet Instructions: Diabetic Diet Activities You Can Perform: Regular-No Restrictions, Shower Only-No Bath, Pelvic Rest Activities to Avoid: Strenuous Activity Follow up Referrals: [employer] [employer] - 1 Week New Medications: Ferrous Sulfate (Feosol) 65 Mg Tab 65 MG PO DAILY Nutritional Supplement #30 Ref 0 TAB Ibuprofen (Ibuprofen) 600 Mg Tab 600 MG PO Q6H PRN CRAMPING #30 TAB Nystatin Topical (Nystop Topical) 100,000 Unit/Gm Powd 1 APPLIC TOPICAL Q8HR Rash #15 APPLIC Oxycodone-Acetaminophen (Oxycodone-Acetaminophen) 5-325 mg Tab 1 TAB PO Q4H PRN PAIN SCALE 3 TO 5 #20 TAB Discontinued Medications: Aspirin (Aspir-81) 81 Mg Tabdr Docosahexaenoic Acid ( Dha) Unknown Strength Cap Unknown Dose Nitrofurantoin Monohydrate Macrocrystals (Macrobid) 100 Mg Cap 100 MG PO BID Infection #10 Ref 0 CAP Madan Nayak II, MD Nov 16, 2016 07:47
[2016-11-16] MEDS ORDERED: LABE200T2 PO (09:33)
[2016-11-18 13:30] LABS: OBMETHADONE UR NEG (NEG); PHENCYCLIDINE URINE NEG (NEG)
[2016-11-18 13:31] LABS: BATH SALTS (MDPV) UR NEG (NEG); ECSTASY (MDMA) UR NEG (NEG); HEROIN (6-ACETYLMORPHINE) UR NEG (NEG); K2 SPICE UR NEG (NEG); OXYCODONE (PERCODAN) NEG (NEG)
--- NOTE | 2016-11-19 08:16 | MP ---
cc: YARIEL NAYAK MD DATE OF SURGERY 11/13/2016 PREOPERATIVE DIAGNOSES 1. 38 weeks with preeclampsia. 2. Gestational diabetes. 3. Polyhydramnios. 4. Macrosomic infant. POSTOPERATIVE DIAGNOSES 1. 38 weeks with preeclampsia. 2. Gestational diabetes. 3. Polyhydramnios. 4. Macrosomic infant. PROCEDURE PERFORMED Repeat classical section. SURGEON Yariel Nayak MD ANESTHESIA Spinal. ASSISTANTS Scrub techs. PREOP NOTE The patient is a 31-year-old white female, G2, P1, with section x 1 at 38 weeks gestation who presents to OBD with elevated blood pressures in the 140/90 range. She was spilling 1346 mg of protein in 24 hours and has 2+ pitting edema generally, has gained 4 pounds in the last week. She has documented macrosomic baby, greater than 9 pounds on ultrasound today with polyhydramnios. She has gestational diabetes controlled by diet and her blood sugars have been within normal limits. It was felt that the patient needed delivery today due to her developing preeclampsia and is for repeat section. PROCEDURE The patient was taken to the operating room and placed in the supine position on the operating room table. Adequate spinal anesthesia was administered. She was prepped and draped for abdominal surgery. Because the patient had a significant yeast infection in both groins and in the suprapubic region, it was felt we should not repeat her section through an infected field, so we performed a vertical skin incision 6 cm below and 6 cm above the umbilicus paramedian to the right vertical incision, carried through the fascia sharply, the fascia incised superiorly and inferiorly and the peritoneal cavity entered without difficulty. The uterus are palpated, noted to be rotated to the left and it was manipulated back to the midline and the midline was identified and a classical incision was made in the fundus of the uterus. The placenta was entered at that time first and I reached through the placenta, grabbed the baby's leg and pulled it up through the incision, reached in and grabbed the second leg and pulled the whole baby out at that time and delivery was at 7:55 p.m., a female infant, weight 4295 grams, Apgars 8 and 9. There were no complications. Cord blood obtained. Placenta manually extracted. All remnants of membranes were removed. The vertical hysterotomy through the uterine corpus was then closed in layers, initially an 0 chromic running suture, locking suture to close the endometrium. A second layer of 0 Vicryl was then used to reapproximate the myometrium, a second layer of 0 Vicryl to continue that closure process and include the mucosal layer. This was closed in running suture. Several bleeding spots along the suture line were then suture ligated with [id number] sutures of 0 Vicryl. Hemostasis was achieved. The uterus was replaced in the peritoneal cavity. Blood and fluid suctioned. The parietal peritoneum was then grasped with Michelle clamps and closed in a running layer of 2-0 Vicryl. The fascia was then closed with a running layer of 0 Vicryl. The subcutaneous tissue was reapproximated with an 0 plain running suture. Several stick ties of 0 Vicryl were then used to bring the subcu tissues even closer together so we could allow a subcuticular closure of the skin which was then performed with a 3-0 Monocryl running subcuticular stitch. Hemostasis was achieved. After the skin was closed, the Steri-Strips were applied and a pressure dressing was applied on top of that. Estimated blood loss was 1000 cc. There were no complications to the procedure. Sponge and needle counts were correct x 2 and the patient went to Recovery in stable condition. MD SHRADDHA Hall/MATT /9:05 PM /7:55 AM
== END 2016-11-15 17:50 | disposition home or self-care (01) | DRG 765 ==
LOC: HOBED 13:42 → H2EB 14:35 → H1EA 22:47
PROVIDERS: ADMIT Obstetrics & Gynecology Maternal & Fetal Medicine; ATTEND Obstetrics & Gynecology Maternal & Fetal Medicine
PROC: 10D00Z1 Extraction of Products of Conception, Low, Open Approach (ICD-10-PCS; principal; 2016-11-13)
DX: O14.94 Unspecified pre-eclampsia, complicating childbirth (principal); O40.3XX0 Polyhydramnios, third trimester, not applicable or unspecified; O24.420 Gestational diabetes mellitus in childbirth, diet controlled; O34.219 Maternal care for unspecified type scar from previous cesarean delivery; Z37.0 Single live birth; Z3A.39 39 weeks gestation of pregnancy; O36.63X0 Maternal care for excessive fetal growth, third trimester, not applicable or unspecified
CPT/HCPCS: 80053; 80307; 81001; 82948; 85025; 85027; 86850; 86900; 86901; 90686; 90715; 99285; G0481; J0131; J0690; J1885; J2274; J2370; J2405; J2590; J3010; J7120; Q2038

== ENCOUNTER 2016-11-16 07:43 | Emergency (ER) | payer OTHER ==
[~2016-11-16] VITALS: Ht 162.6 cm; Wt 105.0 kg
[~2016-11-16 07:43] MED LIST changes: -ASPI81TA81; -DOCO200C; +FERR65TA PO; +IBUP-232 PO; -MACR100C2 PO; +NYST10007 TOPICAL; +OXYC1TAB63 PO
[2016-11-16 07:46] VITALS: BP 178/107; PULSE 122; RESP 20; TEMP 97.5; O2SAT 97
--- NOTE | 2016-11-16 08:09 | PD ---
HPI Chief Complaint: Wound/Suture/Staple Re-Check Time Seen by Provider: 07:55 Travel History International Travel<30 days: No Contact w/Intl Traveler<30days: No Traveled to known affect area: No History of Present Illness HPI The patient was seen and examined in the presence of the nurse. This patient was discharged yesterday after having a . There were some preeclamptic concerns and she is supposed to monitor her blood pressure. She was not discharged on any antihypertensives. She presents today because during the night she had vaginal bleeding. She was concerned that it was a lot. She soaked through a pad. She is not having pain other than soreness at her incision. No presyncopal symptoms. She felt a bit weak. Denies headache. Symptoms severity is moderate. No alleviating factors. Duration one day PFSH Past Medical History Hx Anticoagulant Therapy: No Cardiovascular Problems: No Chemotherapy: No Cerebrovascular Accident: No Diabetes: Yes Patient Takes Glucophage: No Diminished Hearing: No Respiratory: No Seizures: Yes (ONE SEIZURE 12 YEARS AGO) Tetanus Vaccination: < 5 Years ?: Not : 2 Para: 1 Past Surgical History Section: Yes Hysterectomy: No Social History Alcohol Use: No Tobacco Use: No Substance Use: No Allergies-Medications (Allergen,Severity, Reaction): Coded Allergies: Adhesives (Verified Allergy, Mild, Rash, 11/16/16) Reported Meds & Prescriptions Reported Meds & Active Scripts Active Feosol (Ferrous Sulfate) 65 Mg Tab 65 Mg PO DAILY Nystop Topical (Nystatin Topical) 100,000 Unit/Gm Powd 1 Applic TOPICAL Q8HR Oxycodone-Acetaminophen 5-325 mg Tab 1 Tab PO Q4H PRN Ibuprofen 600 Mg Tab 600 Mg PO Q6H PRN Review of Systems General / Constitutional: No: Fever Eyes: No: Visual changes HENT: No: Headaches Cardiovascular: No: Chest Pain or Discomfort Respiratory: No: Shortness of Breath Gastrointestinal: No: Abdominal Pain Genitourinary: Positive: Vaginal Bleeding, No: Dysuria Musculoskeletal: Positive: Weakness, No: Pain Skin: No Rash Neurologic: Positive: Weakness Psychiatric: No: Depression Endocrine: No: Polydipsia Hematologic/Lymphatic: No: Easy Bruising Physical Exam Narrative GENERAL: Well-nourished, well-developed patient in no apparent distress. SKIN: Warm and dry. HEAD: Atraumatic. Normocephalic. EYES: Pupils equal and round. No scleral icterus. No injection or drainage. ENT: No nasal bleeding or discharge. Mucous membranes pink and moist. NECK: Trachea midline. No JVD. CARDIOVASCULAR: Regular rate and rhythm. No murmur appreciated. RESPIRATORY: No accessory muscle use. Clear to auscultation. Breath sounds equal bilaterally. GASTROINTESTINAL: Abdomen soft, non-tender, nondistended. Hepatic and splenic margins not palpable. Vertical incision is covered with Steri- Strips. No dehiscence or sign of infection. MUSCULOSKELETAL: No obvious deformities. No clubbing. No cyanosis. No edema. NEUROLOGICAL: Awake and alert. No obvious cranial nerve deficits. Motor grossly within normal limits. Normal speech. PSYCHIATRIC: Appropriate mood and affect; insight and judgment normal. Data Data Last Documented VS Vital Signs Date Time Temp Pulse Resp B/P Pulse Ox O2 Delivery O2 Flow Rate FiO2 11/16/16 07:46 97.5 122 20 178/107 97 Room Air Orders Complete Blood Count With Diff (11/16/16 08:06) Iv Access Insert/Monitor (11/16/16 08:06) Labs Laboratory Tests Test 11/16/16 08:10 White Blood Count 9.5 TH/MM3 Red Blood Count 3.94 MIL/MM3 Hemoglobin 12.0 GM/DL Hematocrit 33.9 % Mean Corpuscular Volume 86.0 FL Mean Corpuscular Hemoglobin 30.4 PG Mean Corpuscular Hemoglobin 35.3 % Concent Red Cell Distribution Width 14.9 % Platelet Count 195 TH/MM3 Mean Platelet Volume 9.9 FL Neutrophils (%) (Auto) 76.2 % Lymphocytes (%) (Auto) 13.4 % Monocytes (%) (Auto) 8.7 % Eosinophils (%) (Auto) 1.1 % Basophils (%) (Auto) 0.6 % Neutrophils # (Auto) 7.2 TH/MM3 Lymphocytes # (Auto) 1.3 TH/MM3 Monocytes # (Auto) 0.8 TH/MM3 Eosinophils # (Auto) 0.1 TH/MM3 Basophils # (Auto) 0.1 TH/MM3 CBC Comment DIFF FINAL Differential Comment MDM Medical Decision Making Medical Screen Exam Complete: Yes Emergency Medical Condition: Yes Medical Record Reviewed: Yes Differential Diagnosis Postoperative bleeding, anemia, accelerated hypertension Narrative Course I have reviewed the patient's electronic medical record. Reviewed her OB history and physical and discharge summary which was yesterday. Hemoglobin yesterday was 11.8 Blood pressure now 177/91 Abdomen soft and benign and nontender Incision looks good IV placed CBC shows hemoglobin of [address] Nayak, the OB hospitalist that discharged her yesterday. He came down to the ER and evaluated her. He recommends discharging on 200 twice a day of labetalol I written her a 1 month supply Advised her to check and record her blood pressure daily and follow up with her physician Diagnosis Primary Impression: bleeding Qualified Code: O72.2 - Delayed hemorrhage Additional Impression: Accelerated hypertension Additional Instructions: The patient was advised to follow up with their physician and return if they worsen. Check and record blood pressure daily Med/Other Pt SpecificInfo: Prescription(s) given Scripts Labetalol 200 Mg Oye279 Mg PO BID #60 TAB Ref 0 Prov:Misbah Irvin MD 11/16/16 Disposition: 01 DISCHARGE HOME Condition: Stable Misbah Irvin MD Nov 16, 2016 08:09
[2016-11-16 08:29] LABS: AUTOMATED NEUTROPHIL # 7.2 TH/MM3 (1.8-7.7); BASOPHIL # 0.1 TH/MM3 (0-0.2); BASOPHIL % 0.6 % (0.0-2.0); EOSINOPHIL # 0.1 TH/MM3 (0-0.4); EOSINOPHIL % 1.1 % (0.0-4.0); HEMATOCRIT 33.9 % (35.0-46.0); HEMO FLAGS DIFF FINAL; LYMPH % 13.4 % (9.0-44.0); LYMPHOCYTE # 1.3 TH/MM3 (1.0-4.8); MEAN CORPUSCULAR HEMOGLOBIN 30.4 PG (27.0-34.0); MEAN CORPUSCULAR HGB CONC 35.3 % (32.0-36.0); MONO % 8.7 % (0.0-8.0); NEUT % 76.2 % (16.0-70.0); PLATELET COUNT 195 TH/MM3 (150-450); RED BLOOD COUNT 3.94 MIL/MM3 (4.00-5.30); RED CELL DISTRIBUTION WIDTH 14.9 % (11.6-17.2); WHITE BLOOD COUNT 9.5 TH/MM3 (4.0-11.0)
[2016-11-16] MEDS ORDERED: LABE200T2 PO (09:33)
== END 2016-11-16 10:07 | disposition home or self-care (01) ==
LOC: NEPE 07:43
DX: O72.2 Delayed and secondary postpartum hemorrhage (principal); R03.0 Elevated blood-pressure reading, without diagnosis of hypertension
CPT/HCPCS: 85025; 99284